=== PATIENT | female | born 1970 | race Caucasian/White ===

== ENCOUNTER 2021-09-24 22:09 | Emergency (ER) | payer BC ==
--- NOTE | 2021-09-24 22:26 | ERPHSYRPT ---
- History of Present Illness Time Seen by Provider: 09/24/21 22:26 Source: patient Exam Limitations: no limitations Timing/Duration: hour(s) (1) Activities at Onset: none Quality: tightness Location: substernal Chest Pain Radiation: no radiation Severity of Pain-Max: mild Severity of Pain-Current: mild Modifying Factors: Improves With: nothing Nitro Today/Relief: no nitro taken today Aspirin Treatment Today: no aspirin today Associated Symptoms: denies symptoms Prior Chest Pain/Cardiac Workup: no prior chest pain Allergies/Adverse Reactions: hydrocodone bitartrate [From Lorcet Plus] Allergy (Intermediate, Verified 11/09/20 15:38) Itching oxycodone HCl [From Percocet] Allergy (Intermediate, Verified 11/09/20 15:38) Itching propoxyphene napsylate [From Darvocet-N 100] Allergy (Intermediate, Verified 11/09/20 15:38) Itching cephalexin monohydrate [From Keflex] Allergy (Mild, Verified 11/09/20 15:38) Rash pt states she can take rocephin as of today 02/28/19 fluconazole [From Diflucan] Allergy (Mild, Verified 11/09/20 15:38) Rash methotrexate Adverse Reaction (Mild, Verified 11/09/20 15:38) Diarrhea doxycycline Adverse Reaction (Verified 09/24/21 22:11) Home Medications: Ergocalciferol (Vitamin D2) [Vitamin D] 50,000 units PO UD 02/28/19 [History] ALPRAZolam 0.25 MG [xanAX 0.25 MG] 0.25 mg PO BID 11/06/20 [History] Ixekizumab [Taltz Syringe] 80 mg SQ UD 11/06/20 [History] Tizanidine HCl 4 mg [Zanaflex 4 MG] 4 mg PO HS 11/06/20 [History] Hx Tetanus, Diphtheria Vaccination/Date Given: Yes Hx Influenza Vaccination/Date Given: No Hx Pneumococcal Vaccination/Date Given: No - Review of Systems Constitutional: No Symptoms Eyes: No Symptoms Ears, Nose, & Throat: No Symptoms Respiratory: No Symptoms Cardiac: Palpitations Abdominal/Gastrointestinal: No Symptoms Genitourinary Symptoms: No Symptoms Musculoskeletal: No Symptoms Skin: No Symptoms Neurological: No Symptoms Psychological: No Symptoms Endocrine: No Symptoms Hematologic/Lymphatic: No Symptoms Immunological/Allergic: No Symptoms All Other Systems: Reviewed and Negative - Past Medical History Pertinent Past Medical History: Yes Neurological History: No Pertinent History ENT History: Cataracts Cardiac History: No Pertinent History Respiratory History: No Pertinent History Endocrine Medical History: No Pertinent History Musculoskeletal History: Fractures, Other GI Medical History: Hernia History: No Pertinent History Psycho-Social History: Anxiety, Depression Female Reproductive Disorders: No Pertinent History Other Medical History: psoriatic arthritis - Past Surgical History Past Surgical History: Yes Neuro Surgical History: No Pertinent History Cardiac: No Pertinent History Respiratory: No Pertinent History Gastrointestinal: Cholecystectomy, Hernia Repair, Other Genitourinary: No Pertinent History Musculoskeletal: Orthopedic Surgery Female Surgical History: Section, Other Other Surgical History: left arm fracture, plate and pins, thermal ablation, gastric bypass, kiniculectomy - Social History Smoking Status: Former smoker How long have you smoked: 10 years Exposure to second hand smoke: No Drug Use: none Patient Lives Alone: No - Nursing Vital Signs Nursing Vital Signs: Initial Vital Signs Temperature 98.2 F 09/24/21 22:10 Pulse Rate 150 H 09/24/21 22:10 Respiratory Rate 20 09/24/21 22:10 Blood Pressure 160/107 09/24/21 22:10 O2 Sat by Pulse Oximetry 100 09/24/21 22:10 Pain Scale Pain Intensity 0 - Physical Exam General Appearance: no apparent distress Eye Exam: PERRL/EOMI Ears, Nose, Throat Exam: normal ENT inspection Neck Exam: normal inspection Respiratory Exam: normal breath sounds Cardiovascular Exam: tachycardia, irregular Gastrointestinal/Abdomen Exam: soft Pelvic Exam: not done Rectal Exam: deferred Back Exam: normal inspection Extremity Exam: normal inspection Neurologic Exam: alert, oriented x 3, cooperative Skin Exam: normal color, warm - Course Nursing assessment & vital signs reviewed: Yes EKG Interpreted by Me: RATE (148), A-fib, NORMAL AXIS, NORMAL INTERVALS, NORMAL ST-T, Other (After tx. NSR at 87, no ischemia.) Rhythm Strip: Rate (140), Atrial Fibrillation Ordered Tests: Active Orders 24 hr Category Date Time Status EKG-ER Only STAT Care 09/24/21 22:30 Completed IV Insertion STAT Care 09/24/21 23:45 Completed CHEST 1 VIEW (PORTABLE) Stat Exams 09/24/21 22:29 Taken CBC W DIFF Stat Lab 09/24/21 22:35 Completed CMP Stat Lab 09/24/21 22:35 Completed MAGNESIUM Stat Lab 09/24/21 22:35 Completed NT PRO BNP Stat Lab 09/24/21 22:35 Completed TROPONIN Q3H Lab 09/24/21 22:35 Completed Medication Summary Discontinued Medications Generic Name Dose Route Start Last Admin Trade Name Marcela PRN Reason Stop Dose Admin Aspirin 324 mg 09/24/21 23:37 09/24/21 23:40 Aspirin 81 Mg Tab.Chew PO 09/24/21 23:38 324 mg STAT ONE Administration Aspirin Confirm 09/24/21 23:39 Aspirin 81 Mg Tab.Chew Administered 09/24/21 23:40 Dose 324 mg .ROUTE .STK-MED ONE Diltiazem HCl 25 mg 09/24/21 22:31 09/24/21 22:35 Diltiazem Hcl Iv 5 Mg/Ml Vial IV 09/24/21 22:32 25 mg STAT ONE Administration Diltiazem HCl Confirm 09/24/21 22:34 Diltiazem Hcl Iv 5 Mg/Ml Vial Administered 09/24/21 22:35 Dose 50 mg IV .STK-MED ONE Lab/Rad Data: Laboratory Result Diagrams 09/24/21 22:35 09/24/21 22:35 Laboratory Results 09/24/21 09/24/21 09/24/21 Range/Units 22:35 22:35 22:35 WBC 7.4 (4.0-10.5) K/mm3 RBC 4.82 (4.1-5.4) M/mm3 Hgb 11.6 L (12.0-16.0) gm/dl Hct 38.4 (35-47) % MCV 79.7 (78-100) fl MCH 24.1 L (26-32) pg MCHC 30.2 L (32-36) g/dl RDW 16.5 H (11.5-14.0) % Plt Count 344 (150-450) K/mm3 MPV 11.6 H (7.5-11.0) fl Gran % 64.4 (36.0-66.0) % Eos # (Auto) 0.13 (0-0.5) Absolute Lymphs (auto) 1.94 (1.0-4.6) Absolute Monos (auto) 0.55 (0.0-1.3) Lymphocytes % 26.1 (24.0-44.0) % Monocytes % 7.4 (0.0-12.0) % Eosinophils % 1.8 (0.00-5.0) % Basophils % 0.3 (0.0-0.4) % Absolute Granulocytes 4.78 (1.4-6.9) Basophils # 0.02 (0-0.4) Sodium 140 (137-145) mmol/L Potassium 3.5 (3.5-5.1) mmol/L Chloride 105 (98-107) mmol/L Carbon Dioxide 24 (22-30) mmol/L Anion Gap 14.6 (5-15) MEQ/L BUN 18 H (7-17) mg/dL Creatinine 1.08 H (0.52-1.04) mg/dL Estimated GFR 56.4 ML/MIN Glucose 195 H (74-106) mg/dL Calcium 8.9 (8.4-10.2) mg/dL Magnesium 2.1 (1.6-2.3) mg/dL Total Bilirubin 0.70 (0.2-1.3) mg/dL AST 24 (14-36) U/L ALT 13 (0-35) U/L Alkaline Phosphatase 115 (38-126) U/L Troponin I < 0.012 (0.000-0.034) ng/mL NT-Pro-B Natriuret Pep 189 (0-900) pg/mL Serum Total Protein 7.3 (6.3-8.2) g/dL Albumin 4.4 (3.5-5.0) g/dL - Progress Progress: improved Air Movement: good Progress Note: 09/25/21 03:10 New onset A-fib with RVR, no chest pain, no sign of [place]. Rate controlled and converted with one dose of cardizem 25 mg IV. She wants to go home. Feels fine. Gave ASA 324 mg. Asked her about eliquis - declined. Will see PCP and talk it over. Blood Culture(s) Obtained: No Antibiotics given: No Counseled pt/family regarding: lab results, diagnosis, need for follow-up, rad results - Departure Departure Disposition: Home Clinical Impression: Atrial fibrillation with rapid ventricular response Condition: Stable Critical Care Time: No Critical Care Time(excluding separately billable procedures): Critical 30-74 mins Referrals: RENETTA WATKINS, [Primary Care Provider] - Follow up/PCP as directed Instructions: Atrial Fibrillation (DC) Additional Instructions: See your DrAmari ADRIÁN. Take a baby aspirin daily. Your Dr. or the heart Dr. might start you on a stronger blood thinner.
[2021-09-24] MEDS ORDERED: Cardizem IV 50 MG/10 ML IV ONE ×2 (22:31→22:34)
[2021-09-24 22:39] LABS: Absolute Neutrophil Ct (ANC) 4.78 (1.4-6.9); Basophil (Absolute #) 0.02 (0-0.4); Eosinophil % 1.8 % (0.00-5.0); Eosinophil (Absolute #) 0.13 (0-0.5); Hematocrit 38.4 % (35-47); Hemoglobin 11.6 gm/dl (12.0-16.0); Lymphocyte (Absolute #) 1.94 (1.0-4.6); Lymphocytes % 26.1 % (24.0-44.0); Mean Cell Volume 79.7 fl (78-100); Mean Corpuscular Hemoglobin 24.1 pg (26-32); Mean Corpuscular Hgb Concent. 30.2 g/dl (32-36); Mean Platelet Volume 11.6 fl (7.5-11.0); Monocyte (Absolute #) 0.55 (0.0-1.3); Monocytes % 7.4 % (0.0-12.0); Neutrophil % 64.4 % (36.0-66.0); Platelet Count 344 K/mm3 (150-450); Red Blood Count 4.82 M/mm3 (4.1-5.4); Red Cell Distribution Width 16.5 % (11.5-14.0); White Blood Count 7.4 K/mm3 (4.0-10.5)
[2021-09-24 23:06] LABS: ALBUMIN 4.4 g/dL (3.5-5.0); ANION GAP 14.6 MEQ/L (5-15); BILIRUBIN,TOTAL 0.7 mg/dL (0.2-1.3); Calcium 8.9 mg/dL (8.4-10.2); Creatinine 1 1.08 mg/dL (0.52-1.04); EST GLOMERULAR FILTRATION RATE 56.4 ML/MIN; MAGNESIUM 2.1 mg/dL (1.6-2.3); Potassium 3.5 mmol/L (3.5-5.1); Total Protein 7.3 g/dL (6.3-8.2)
[2021-09-24] MEDS ORDERED: BABY ASPIRIN 81 MG CHEW PO ONE (23:37)
[2021-09-24] MEDS ORDERED: BABY ASPIRIN 81 MG CHEW ONE (23:39)
[2021-09-24 23:46] VITALS: BP 138/77; PULSE 80; O2SAT 97
--- NOTE | 2021-09-25 07:55 | XRAY ---
Indication: Palpitations. Comparison: June 05, 2021. Portable chest again demonstrates normal heart and lungs. Bony thorax intact. No new/acute findings.
== END 2021-09-24 23:52 | disposition home or self-care (01) ==
LOC: ED 22:09
DX: I48.91 Unspecified atrial fibrillation (principal)
CPT/HCPCS: 36000; 36415; 71045; 80053; 83735; 83880; 84484; 85025; 93005; 96374; 99284; A9270-GY

== ENCOUNTER 2021-10-26 19:32 | Emergency (ER) | payer BC ==
[2021-10-26] MEDS ORDERED: Hydromorphone 1 mg/ml Injection IM ONE (21:42)
[2021-10-26] MEDS ORDERED: Hydromorphone 1 mg/ml Injection ONE (21:44)
--- NOTE | 2021-10-26 21:57 | ERPHSYRPT ---
- History of Present Illness Time Seen by Provider: 10/26/21 20:55 Source: patient Exam Limitations: no limitations Patient Subjective Stated Complaint: "My head and eye hurt." Triage Nursing Assessment: Patient reported having surgery to correct retinal dettachment on 10/26/21. She reported worsening pain since the night of 10/25/21. Denied any recent injuries to the eye. She reported having an appointment with her surgeon on 10/27/21 Dr. Ulises Kirkland. Left eye with ecchymosis. Upper lid swollen. No noted exudate. pupils 3mm bilateral. Scleral hemorrhage noted which was reported to have been there since the surgery. Physician History: Patient is a 51-year-old female presents to our ED for evaluation of postoperative pain. Patient is status post op day 5 retinal surgery repair. Patient ran out of her Ultram pain medication provided to her by her legal records manager. Patient's first retinal surgery was performed on September 16. Patient states due to her multiple medicine allergies her legal records manager could only give her Ultram for pain. Patient states that the Ultram has not been helpful. Patient denies acute change pain. No acute change in vision. Patient states since surgery she could only see shadows. But patient states that her legal records manager told her this would be the case since there was so much blood during surgery. Patient complains of a headache. Patient blood pressure is elevated. Patient took her blood pressure medication this morning as scheduled. No trauma. No fever. No photophobia. No neck pain. Patient has no meningeal signs. No chest pain or shortness of breath. Symptoms are mild to moderate in intensity. No specific worsening improving factors. Patient voices no other complaints concerns at this time. Patient advised that she currently has an appointment scheduled with her legal records manager tomorrow at 3 PM. Patient states that she called her legal records manager and described her symptoms. He advised her to come to our ED for pain control. Timing/Duration: day(s) (5 days) Severity: moderate Modifying Factors: Improves With: nothing Associated Symptoms: denies symptoms, No nausea, No vomiting, No shortness of breath, No diaphoresis, No chills, No chest pain, No headaches, No syncope, No seizure, No weakness Allergies/Adverse Reactions: hydrocodone bitartrate [From Lorcet Plus] Allergy (Intermediate, Verified 10/26/21 20:49) Itching oxycodone HCl [From Percocet] Allergy (Intermediate, Verified 10/26/21 20:49) Itching propoxyphene napsylate [From Darvocet-N 100] Allergy (Intermediate, Verified 10/26/21 20:49) Itching cephalexin monohydrate [From Keflex] Allergy (Mild, Verified 10/26/21 20:49) Rash pt states she can take rocephin as of today 02/28/19 fluconazole [From Diflucan] Allergy (Mild, Verified 10/26/21 20:49) Rash methotrexate Adverse Reaction (Mild, Verified 10/26/21 20:49) Diarrhea doxycycline Adverse Reaction (Verified 10/26/21 20:49) Home Medications: Ergocalciferol (Vitamin D2) [Vitamin D] 50,000 units PO UD 02/28/19 [History] ALPRAZolam 0.25 MG [xanAX 0.25 MG] 0.25 mg PO BID 11/06/20 [History] Ixekizumab [Taltz Syringe] 80 mg SQ UD 11/06/20 [History] Tizanidine HCl 4 mg [Zanaflex 4 MG] 4 mg PO HS 11/06/20 [History] Diltiazem HCl 120 mg [Cardizem CD 120 MG] 120 mg PO DAILY 10/26/21 [History] Hx Tetanus, Diphtheria Vaccination/Date Given: Yes Hx Influenza Vaccination/Date Given: No Hx Pneumococcal Vaccination/Date Given: No Travel Risk - International Travel Have you traveled outside of the country in past 3 weeks: No - Coronavirus Screening Are you exhibiting any of the following symptoms?: No Close contact with a COVID-19 positive Pt in past 14-21 Days: No - Vaccine Status Have you recieved a Covid-19 vaccination: Yes 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 - Vaccination Dates Date of 2cond Vaccination (if applicable): 10/2021 - Review of Systems Constitutional: No Symptoms, No Fever, No Chills Eyes: No Symptoms Ears, Nose, & Throat: No Symptoms Respiratory: No Symptoms, No Cough, No Dyspnea Cardiac: No Symptoms, No Chest Pain, No Edema, No Syncope Abdominal/Gastrointestinal: No Symptoms, No Abdominal Pain, No Nausea, No Vomiting, No Diarrhea Genitourinary Symptoms: No Symptoms, No Dysuria Musculoskeletal: No Symptoms, No Back Pain, No Neck Pain Skin: No Symptoms, No Rash Neurological: No Symptoms, No Dizziness, No Focal Weakness, No Sensory Changes Psychological: No Symptoms Endocrine: No Symptoms Hematologic/Lymphatic: No Symptoms Immunological/Allergic: No Symptoms All Other Systems: Reviewed and Negative - Past Medical History Pertinent Past Medical History: Yes Neurological History: No Pertinent History ENT History: Cataracts, Other Cardiac History: No Pertinent History Respiratory History: No Pertinent History Endocrine Medical History: No Pertinent History Musculoskeletal History: Fractures, Other GI Medical History: Hernia History: No Pertinent History Psycho-Social History: Anxiety, Depression Female Reproductive Disorders: No Pertinent History Other Medical History: psoriatic arthritis, retinal dettachment - Past Surgical History Past Surgical History: Yes Neuro Surgical History: No Pertinent History Cardiac: No Pertinent History Respiratory: No Pertinent History Gastrointestinal: Cholecystectomy, Hernia Repair, Other Genitourinary: No Pertinent History Musculoskeletal: Orthopedic Surgery Female Surgical History: Section, Other Other Surgical History: left arm fracture, plate and pins, thermal ablation, gastric bypass, kiniculectomy - Social History Smoking Status: Former smoker How long have you smoked: 10 years Exposure to second hand smoke: No Drug Use: none Patient Lives Alone: No - Nursing Vital Signs Nursing Vital Signs: Initial Vital Signs Temperature 98.7 F 10/26/21 20:52 Pulse Rate 71 10/26/21 20:52 Respiratory Rate 20 10/26/21 20:52 Blood Pressure 207/94 10/26/21 20:52 O2 Sat by Pulse Oximetry 100 10/26/21 20:52 Pain Scale Pain Intensity 1 - Physical Exam General Appearance: no apparent distress, alert Eye Exam: PERRL/EOMI, eyes nml inspection Ears, Nose, Throat Exam: normal ENT inspection, TMs normal, pharynx normal, moist mucous membranes Neck Exam: normal inspection, non-tender, supple, full range of motion Respiratory Exam: normal breath sounds, lungs clear, airway intact, No respiratory distress Cardiovascular Exam: regular rate/rhythm, normal heart sounds, normal peripheral pulses Gastrointestinal/Abdomen Exam: soft, normal bowel sounds, No tenderness, No mass Back Exam: normal inspection, normal range of motion, No CVA tenderness, No vertebral tenderness Extremity Exam: normal inspection, normal range of motion, pelvis stable Neurologic Exam: alert, oriented x 3, cooperative, normal mood/affect, nml cerebellar function, nml station & gait, sensation nml, No motor deficits Skin Exam: normal color, warm, dry, No rash Lymphatic Exam: No adenopathy SpO2 Interpretation: normal SpO2: 96 O2 Delivery: Room Air - Course Nursing assessment & vital signs reviewed: Yes Ordered Tests: Medication Summary Discontinued Medications Generic Name Dose Route Start Last Admin Trade Name Marcela PRN Reason Stop Dose Admin Hydromorphone HCl 1 mg 10/26/21 21:42 10/26/21 21:46 Hydromorphone 1 Mg/1ml Inj 1 Mg/Ml Syringe IM 10/26/21 21:43 1 mg STAT ONE Administration Hydromorphone HCl Confirm 10/26/21 21:44 Hydromorphone 1 Mg/1ml Inj 1 Mg/Ml Syringe Administered 10/26/21 21:45 Dose 1 mg .ROUTE .STK-MED ONE Tramadol HCl Confirm 10/26/21 23:17 Tramadol Hcl 50 Mg Tablet Administered 10/26/21 23:18 Dose 150 mg .ROUTE .STK-MED ONE - Progress Progress: improved Progress Note: Patient reassessed. Pain significantly improved after 1 mg Dilaudid IM. Patient states he is ready for discharge. Blood pressure improved 178/95. Patient will be taken her a.m. blood pressure pill this morning. Patient currently has a follow-up appointment with her legal records manager at 3 PM. We discussed the need for CAT scan. Patient declined the CAT scan. Patient states that she does not feel it necessary and feels the pain is expected postoperative pain. Risks and benefits discussed. Patient agrees to follow-up with her legal records manager as scheduled. She voices no other complaints or concerns at this time. Portions of this note were created with voice recognition technology. There may be grammatical, spelling, punctuation or sound alike errors 10/26/21 23:21 Patient discharged home with (3)50 mg Ultram pills. 10/26/21 23:22 Counseled pt/family regarding: diagnosis, need for follow-up, rad results - Departure Departure Disposition: Home Clinical Impression: Postoperative pain, Medication refill Condition: Stable Critical Care Time: No Referrals: RENETTA WATKINS, [Primary Care Provider] - Follow up/PCP as directed Additional Instructions: Discharge/Care Plan SKIP CERVANTES was seen on 10/26/21 in the Emergency Room. The patient was counseled regarding Diagnosis,Lab results, Imaging studies, need for follow up and when to return to the Emergency Room. Prescriptions given: Discharge Note I have spoken with the patient and/or caregivers. I have explained the patient's condition, diagnosis and treatment plan based on the information available to me at this time. I have answered the patient's and/or caregiver's questions and addressed any concerns. The patient and/or caregivers have as good understanding of the patient's diagnosis, condition and treatment plan as can be expected at this point. The vital signs have been stable. The patient's condition is stable and appropriate for discharge from the emergency department. The patient will pursue further outpatient evaluation with the primary care physician or other designated or consulting physician as outlined in the discharge instructions. The patient and/or caregivers are agreeable to this plan of care and follow-up instructions have been explained in detail. The patient and/or caregivers have received these instruction. The patient/and or caregivers are aware that any significant change in condition or worsening of symptoms should prompt an immediate return to this or the closest emergency department or call 911.
[2021-10-26] MEDS ORDERED: ULTRAM 50 MG ONE (23:17)
[2021-10-26] MEDS ORDERED: ULTRAM 50 MG PO ONE (23:19)
[2021-10-26 23:25] VITALS: O2SAT 96
[2021-10-26 23:27] VITALS: BP 175/96; PULSE 64
== END 2021-10-26 23:35 | disposition home or self-care (01) ==
LOC: ED 19:32
DX: G89.18 Other acute postprocedural pain (principal); Z79.891 Long term (current) use of opiate analgesic; R03.0 Elevated blood-pressure reading, without diagnosis of hypertension
CPT/HCPCS: 96372; 99283; J1170; A9270-GY

== ENCOUNTER 2024-10-25 19:57 | Emergency (ER) | payer BC ==
[2024-10-25 20:21] VITALS: BP 174/84; PULSE 71; RESP 18; TEMP 97.8; O2SAT 99
--- NOTE | 2024-10-25 20:31 | ERPHSYRPT ---
- History of Present Illness Source: patient Exam Limitations: no limitations Patient Subjective Stated Complaint: pt states that she went to her doctor today and had a chest xray. pt states that she is having pain in her left back Triage Nursing Assessment: pt ambulate into the er; pt is axo x4; c/o back; pt states 3/10 pain to left back; pt states worse pain with coughing; coarse lung sounds to LLL; coarse lung sounds subside with coughing; dry hacking cough present; no deformity or bruising present to back; no respiratory distress present; hypertensive Physician History: Patient's had symptoms for about 6 days.She has had a cough and now has some pleuritic type chest pain. She is not having any dyspnea. She is not tachycardic. She is breathing fairly easily. Her chest pain is sharp it is constant at a low level and then whenever she coughs or takes a deep breath it gets worse. She is not any respiratory distress. She went to her doctor 5 days ago and then went to urgent care this afternoon. They did a chest x-ray which I reviewed. It was clear. Pain is in the mid left lung. It is not moving and it is consistent. Allergies/Adverse Reactions: hydrocodone bitartrate [From Lorcet Plus] Allergy (Intermediate, Verified 10/25/24 20:04) Itching oxycodone HCl [From Percocet] Allergy (Intermediate, Verified 10/25/24 20:04) Itching propoxyphene napsylate [From Darvocet-N 100] Allergy (Intermediate, Verified 10/25/24 20:04) Itching cephalexin monohydrate [From Keflex] Allergy (Mild, Verified 10/25/24 20:04) Rash pt states she can take rocephin as of today 02/28/19 fluconazole [From Diflucan] Allergy (Mild, Verified 10/25/24 20:04) Rash methotrexate Adverse Reaction (Mild, Verified 10/25/24 20:04) Diarrhea doxycycline Adverse Reaction (Verified 10/25/24 20:04) Home Medications: Ergocalciferol (Vitamin D2) [Vitamin D] 50,000 units PO UD 02/28/19 [History] ALPRAZolam 0.25 MG [xanAX 0.25 MG] 0.25 mg PO TID PRN 11/06/20 [History] Ixekizumab [Taltz Syringe] 80 mg SQ UD 11/06/20 [History] Tizanidine HCl 4 mg [Zanaflex 4 MG] 4 mg PO HS 11/06/20 [History] Diltiazem HCl Cd [Cardizem CD ] 120 mg PO DAILY 10/26/21 [History] Tramadol HCl 50 mg [Ultram 50 mg] 50 mg PO DAILY PRN 04/12/22 [History] Hx Tetanus, Diphtheria Vaccination/Date Given: Yes Hx Influenza Vaccination/Date Given: No Hx Pneumococcal Vaccination/Date Given: No Immunizations Up to Date: No Travel Risk - International Travel Have you traveled outside of the country in past 3 weeks: No - Emerging Infectious Disease Are you exhibiting symptoms associated with any current EIDs: Yes Symptoms: Cough: New Onset - Review of Systems Constitutional: No Symptoms, Fatigue Eyes: No Symptoms Ears, Nose, & Throat: No Symptoms Respiratory: Cough, No Dyspnea, No Dyspnea on Exertion (BATEMAN) Cardiac: No Symptoms Abdominal/Gastrointestinal: No Symptoms Genitourinary Symptoms: No Symptoms Musculoskeletal: No Symptoms Skin: No Symptoms - Past Medical History Pertinent Past Medical History: Yes Neurological History: No Pertinent History ENT History: Cataracts, Other Cardiac History: No Pertinent History Respiratory History: No Pertinent History Endocrine Medical History: No Pertinent History Musculoskeletal History: Fractures, Other GI Medical History: Hernia History: No Pertinent History Psycho-Social History: Anxiety, Depression Female Reproductive Disorders: No Pertinent History Other Medical History: psoriatic arthritis, retinal dettachment - Past Surgical History Past Surgical History: Yes Neuro Surgical History: No Pertinent History Cardiac: No Pertinent History Respiratory: No Pertinent History Gastrointestinal: Cholecystectomy, Hernia Repair, Other Genitourinary: No Pertinent History Musculoskeletal: Orthopedic Surgery Female Surgical History: Section, Other Other Surgical History: left arm fracture, plate and pins, thermal ablation, gastric bypass, kiniculectomy, 3 retina detattachments - Social History Smoking Status: Former smoker How long have you smoked: 10 Exposure to second hand smoke: No Drug Use: none - Social Determinants of Health Will the patient participate in the screening: Yes Do you worry about a steady place to live?: No Do you have any problems with any of the following?: No known problems In the past 12 months,have you had to go without utilities?: No Transportation Issues: No Has anyone in your support network made you feel unsafe?: No Have you or anyone in your house had to go w/o enough food: No - Nursing Vital Signs Nursing Vital Signs: Initial Vital Signs Temperature 97.8 F 10/25/24 20:07 Pulse Rate 71 10/25/24 20:07 Respiratory Rate 18 10/25/24 20:07 Blood Pressure 174/84 10/25/24 20:07 O2 Sat by Pulse Oximetry 99 10/25/24 20:07 Pain Scale Pain Intensity [Left Lateral 3 Back] Pain Intensity 3 - Physical Exam General Appearance: no apparent distress Ears, Nose, Throat Exam: normal ENT inspection Respiratory Exam: normal breath sounds, chest tenderness, lungs clear, No respir atory distress Cardiovascular Exam: regular rate/rhythm, normal heart sounds Gastrointestinal/Abdomen Exam: soft, normal bowel sounds Back Exam: normal inspection, CVA tenderness, No normal range of motion Extremity Exam: normal inspection, normal range of motion, No pedal edema Neurologic Exam: alert, oriented x 3, cooperative Skin Exam: normal color, warm SpO2: 99 - Progress Progress: re-examined Air Movement: good Progress Note: The patient had an x-ray earlier today. I was able to review it. I went to go to reorder it. I do not believe that she has a pulmonary embolism. She is not tachycardic and is not having any respiratory distress. She did not meet screening criteria for a D-dimer.She also had a flu COVID and RSV test today which was negative. I think she may have an early pneumonia possibly starting out. There was a little bit of coarseness in the left lung which resolved with coughing. At this time I am going to start her on Zithromax amoxicillin and ibuprofen for the pain 10/25/24 20:28 - Departure Departure Disposition: Home Clinical Impression: Pleurisy Condition: Stable Critical Care Time: No Referrals: JONATHAN HODGES DO [Primary Care Provider] - Follow up/PCP as directed Instructions: Pleuritic chest pain
[2024-10-25] MEDS ORDERED: AMOXIL 500 MG ONE (20:38)
[2024-10-25] MEDS ORDERED: Zithromax 250 MG TABLET ONE (20:38)
[2024-10-25] MEDS: Zithromax 250 MG TABLET PO ONE (20:39)
[2024-10-25] MEDS: AMOXIL 500 MG PO ONE (20:39)
== END 2024-10-25 20:45 | disposition home or self-care (01) ==
LOC: ED 19:57
DX: R09.1 Pleurisy (principal); R05.1 Acute cough; Z79.899 Other long term (current) drug therapy
CPT/HCPCS: 99282; 99283; A9270-GY